=== PATIENT | male | born 2000 | race Caucasian/White ===

== ENCOUNTER 2021-07-27 10:43 | Emergency (ER) | payer OTHER ==
[2021-07-27 11:27] LABS: Urine Blood Trace-intact (Negative); Urine Glucose Negative (Negative); Urine Protein Negative (Negative); Urine Specific Gravity 1.025 (1.005-1.030); Urine pH 6.5 (5.0-7.0)
[2021-07-27 12:17] LABS: Urine Bacteria <20 /HPF (NONE SEEN); Urine RBC <5 /HPF (NONE SEEN)
[2021-07-27] MEDS ORDERED: WATER FOR INJ,STERILE 10 ML ONE (12:36)
[2021-07-27] MEDS ORDERED: AZITHROMYCIN 250 MG TAB ONE ×2 (12:36→12:42)
[2021-07-27] MEDS ORDERED: CEFTRIAXONE 250 MG/VIAL ONE (12:36)
--- NOTE | 2021-07-27 12:56 | ER ---
Nurse's Notes [facility] Name: Ramo Nice Age: 21 yrs Sex: Male : 2000 Arrival Date: 07/27/2021 Time: 10:45 Bed 11 Private MD: Diagnosis: Localized swelling, mass and lump, unspecified;Dysuria Presentation: 07/27 10:56 Chief complaint: Patient states: Near the head of penis noticed a lump about 2 weeks vg1 ago and then noticed a couple more last night; states swelling and redness and tenderness. Denies sexual activity. Also states, burning upon urination. Coronavirus screen: Vaccine status: Patient reports being unvaccinated. Client denies travel out of the [place] in the last 14 days. Ebola Screen: Patient denies exposure to infectious person. Patient denies travel to an Ebola-affected area in the 21 days before illness onset. Initial Sepsis Screen: Does the patient meet any 2 criteria? No. Patient's initial sepsis screen is negative. Does the patient have a suspected source of infection? No. Patient's initial sepsis screen is negative. Risk Assessment: Do you want to hurt yourself or someone else? Patient reports no desire to harm self or others. Onset of symptoms was July 13, 2021. 10:56 Method Of Arrival: Ambulatory vg1 10:56 Acuity: ALEXANDRE 4 vg1 Triage Assessment: 11:00 General: Appears uncomfortable, Behavior is calm, cooperative. Pain: Complains of pain vg1 in groin Pain currently is 5 out of 10 on a pain scale. : Reports burning with urination. Historical: - Allergies: 11:00 No Known Allergies; vg1 - Home Meds: 11:00 None [Active]; vg1 - PMHx: 11:00 None; vg1 - PSHx: 11:00 None; vg1 - Immunization history:: Client reports having NOT received the Covid vaccine. - Social history:: Smoking status: Patient denies any tobacco usage or history of. Screenin:24 Abuse screen: Denies threats or abuse. Denies injuries from another. Nutritional ss screening: No deficits noted. Tuberculosis screening: Never had TB. Fall Risk None identified. Assessment: 11:24 General: Appears in no apparent distress. comfortable, Behavior is calm, cooperative. ss Neuro: Shah Agitation-Sedation Scale (RASS): 0 - Alert and Calm Level of Consciousness is awake, alert, obeys commands, Oriented to person, place, time, situation. Cardiovascular: Capillary refill < 3 seconds is brisk in bilateral fingers. Respiratory: Airway is patent Respiratory effort is even, unlabored, Respiratory pattern is regular, symmetrical. GI: Patient currently denies diarrhea, nausea, vomiting. EENT: Nares are clear Oral mucosa is moist. Derm: Skin is intact, is healthy with good turgor, Skin is dry, Skin is pink, warm \T\ dry. normal. Musculoskeletal: Circulation, motion, and sensation intact. Range of motion: intact in all extremities, Swelling absent. Vital Signs: 10:56 BP 148 / 79; Pulse 55; Resp 16; Temp 98.4; Pulse Ox 100% ; Weight 99.79 kg; Height 6 vg1 ft. 0 in. (182.88 cm); Pain 5/10; 10:56 Body Mass Index 29.84 (99.79 kg, 182.88 cm) vg1 ED Course: 10:45 Patient arrived in ED. ds1 11:00 Triage completed. vg1 11:00 Arm band placed on. vg1 11:22 Florentin Espinosa NP is PHCP. pm1 11:22 Guillermina Bauman MD is Attending Physician. pm1 11:24 Ashley Tran, BALA is Primary Nurse. ss 11:24 Patient has correct armband on for positive identification. Bed in low position. Call ss light in reach. Adult w/ patient. 11:42 GC (Randall/Chl) Probe URINE Sent. 3 13:30 No provider procedures requiring assistance completed. Patient did not have IV access ss during this emergency room visit. Administered Medications: 12:39 Drug: Rocephin (cefTRIAXone) 250 mg Route: IM; Site: right gluteus; ss 13:37 Follow up: Response: No adverse reaction ss 12:39 Drug: AZITHromycin 1 grams Route: PO; ss 13:37 Follow up: Response: No adverse reaction ss Medication: 11:24 VIS not applicable for this client. ss Outcome: 12:55 Discharge ordered by . pm1 13:30 Discharged to home ambulatory, with family. ss 13:30 Condition: good 13:30 Discharge instructions given to patient, Instructed on discharge instructions, follow up and referral plans. Demonstrated understanding of instructions, follow-up care. 13:32 Patient left the ED. Signatures: Mirna Raman ds1 Ashley Tran RN RN ss Florentin Espinosa, ROZ APPRENTICE EMBALMER pm1 Stacie Marie 3 [place] Solomon, RN RN vg1 Corrections: (The following items were deleted from the chart) 11:01 10:56 Chief complaint: Patient states: Near the head of penis noticed a lump about 2 vg1 weeks ago and then noticed a couple more last night; states swelling and redness and tenderness. Denies sexual activity. vg1
--- NOTE | 2021-07-27 12:56 | EDPHYS ---
Physician Documentation [facility] Name: Ramo Nice Age: 21 yrs Sex: Male : 2000 Arrival Date: 07/27/2021 Time: 10:45 Bed 11 Private MD: ED Physician Guillermina Bauman HPI: 07/27 11:45 This 21 yrs old Male presents to ER via Ambulatory with complaints of Penile Problem. pm1 11:45 The patient presents with urinary symptoms, burning with urination, lump to the right pm1 side of his penis. 11:45 Onset: The symptoms/episode began/occurred 2 week(s) ago. Modifying factors: The pm1 symptoms are alleviated by nothing, the symptoms are aggravated by nothing. Associated signs and symptoms: Pertinent positives: dysuria, Pertinent negatives: Testicular pain, abdominal pain, fever. Severity of symptoms: in the emergency department the symptoms Patient reports increased pain with lump to right side of his penis for the past 2 weeks. The patient has not experienced similar symptoms in the past. The patient has not recently seen a physician. Historical: - Allergies: 11:00 No Known Allergies; vg1 - Home Meds: 11:00 None [Active]; vg1 - PMHx: 11:00 None; vg1 - PSHx: 11:00 None; vg1 - Immunization history:: Client reports having NOT received the Covid vaccine. - Social history:: Smoking status: Patient denies any tobacco usage or history of. ROS: 11:45 Constitutional: Negative for fever, chills, and weight loss, Cardiovascular: Negative pm1 for chest pain, palpitations, and edema, Respiratory: Negative for shortness of breath, cough, wheezing, and pleuritic chest pain, Abdomen/GI: Negative for abdominal pain, nausea, vomiting, diarrhea, and constipation, Back: Negative for injury and pain. 11:45 MS/Extremity: Negative for injury and deformity, Skin: Negative for injury, rash, and discoloration. 11:45 : Positive for burning with urination, Mass to right side of penis just proximal to glans, Negative for testicular pain 11:45 All other systems are negative. Exam: 11:45 Constitutional: This is a well developed, well nourished patient who is awake, alert, pm1 and in no acute distress. Head/Face: Normocephalic, atraumatic. 11:45 Abdomen/GI: Soft, non-tender, with normal bowel sounds. No distension or tympany. No guarding or rebound. No evidence of tenderness throughout. 11:45 Skin: Warm, dry with normal turgor. Normal color with no rashes, no lesions, and no evidence of cellulitis. MS/ Extremity: Pulses equal, no cyanosis. Neurovascular intact. Full, normal range of motion. 11:45 Cardiovascular: Exam negative for acute changes, Rate: normal, Rhythm: regular, Pulses: no pulse deficits are appreciated. 11:45 Respiratory: Exam negative for acute changes, respiratory distress, shortness of breath. 11:45 : Male external genitalia: abrasion, small in size, of the scrotum, Small movable 1 cm x 0.5 cm palpable mass to right side of penis proximal to glans, Sexual behavior: the patient is not sexually active. 11:45 Neuro: Exam negative for acute changes, Orientation: is normal, Mentation: is normal, Motor: is normal, moves all fours. Vital Signs: 10:56 BP 148 / 79; Pulse 55; Resp 16; Temp 98.4; Pulse Ox 100% ; Weight 99.79 kg; Height 6 vg1 ft. 0 in. (182.88 cm); Pain 5/10; 10:56 Body Mass Index 29.84 (99.79 kg, 182.88 cm) vg1 MDM: 11:26 Patient medically screened. pm1 11:45 Differential diagnosis: UTI, urethritis, STD, abscess, penile mass. pm1 12:54 Data reviewed: vital signs. Data interpreted: Pulse oximetry: on room air is 100 %. pm1 Interpretation: normal. Counseling: I had a detailed discussion with the patient and/or guardian regarding: the historical points, exam findings, and any diagnostic results supporting the discharge/admit diagnosis, lab results, the need for outpatient follow up, to return to the emergency department if symptoms worsen or persist or if there are any questions or concerns that arise at home. 07/27 11:27 Order name: Urine Dipstick-Ancillary; Complete Time: 11:34 EDMS 07/27 11:38 Order name: GC (Randall/Chl) Probe URINE EDMS 07/27 11:27 Order name: Urine Dipstick-Ancillary (obtain specimen); Complete Time: 11:27 07/27 11:44 Order name: Urine Microscopic Only; Complete Time: 12:27 pm1 Administered Medications: 12:39 Drug: Rocephin (cefTRIAXone) 250 mg Route: IM; Site: right gluteus; ss 13:37 Follow up: Response: No adverse reaction 12:39 Drug: AZITHromycin 1 grams Route: PO; ss 13:37 Follow up: Response: No adverse reaction ss Disposition Summary: 07/27/21 12:55 Discharge Ordered Location: Home pm1 Problem: new pm1 Symptoms: have improved pm1 Condition: Stable pm1 Diagnosis - Localized swelling, mass and lump, unspecified pm1 - Dysuria pm1 Followup: pm1 - With: Emergency Department - When: As needed - Reason: Worsening of condition Followup: pm1 - With: Private Physician - When: 2 - 3 days - Reason: Recheck today's complaints, Continuance of care, Re-evaluation by your physician Discharge Instructions: - Discharge Summary Sheet pm1 - Dysuria pm1 Forms: - Medication Reconciliation Form pm1 - Thank You Letter pm1 - Antibiotic Education pm1 - Prescription Opioid Use pm1 Signatures: Dispatcher [employer] EDAshley Obrien RN RN ss Florentin Espinosa, ROZ PRICING DIRECTOR pm1 [place] Solomon, RN RN vg1
[2021-07-27 13:39] VITALS: BP 148/79; TEMP 98.4; O2SAT 100
[2021-07-30 18:55] LABS: C.trachomatis RNA,TMA Not Detected (Not Detected)
== END 2021-07-27 13:32 | disposition home or self-care (01) ==
LOC: ER 10:43
DX: R30.0 Dysuria (principal); R22.9 Localized swelling, mass and lump, unspecified
CPT/HCPCS: 87590; 87490; 96372; 99283; J0696; 81003; 81015